=== PATIENT | male | born 1960 ===

== ENCOUNTER 2019-03-02 07:04 | Day surgery (SDC) | payer BC ==
[2019-03-02] MEDS ORDERED: Povidone Iodine Ophthalmic 5% Soln ONE (07:39)
[2019-03-02] MEDS ORDERED: Chondroitin/Hyaluronate Opth Syringe KIT (0.55 ml-0.5 ml) IO ONE (07:39)
[2019-03-02] MEDS ORDERED: Hyaluronidase Human, Recombi 150 U/ML VIAL ONE (07:39)
[2019-03-02] MEDS ORDERED: Tetracaine 0.5% Ophth (OR ONLY) ONE ×2 (07:39→07:41)
[2019-03-02] MEDS ORDERED: Tobramycin/Dexamethasone OPHT OINT ONE ×2 (07:39→07:41)
[2019-03-02] MEDS ORDERED: Tobramycin/Dexamethasone (Tobradex) Opth Sol (2.5 ml) ONE (07:39)
[2019-03-02] MEDS ORDERED: Carbachol 0.01% IO ONE (07:39)
[2019-03-02] MEDS ORDERED: Lidocaine/Epinephrine 1% 1:100000 10 ML IJ ONE (07:52)
[2019-03-02] MEDS ORDERED: Lidocaine 2% Jelly (Uro-Jet) ONE (07:52)
[2019-03-02 08:07] VITALS: BMI 35.5
[2019-03-02 11:15] VITALS: PULSE 70; TEMP 97.9; O2SAT 98
[2019-03-02 11:53] VITALS: BP 158/70; RESP 16
--- NOTE | 2019-03-03 07:14 | OP ---
PROCEDURE DATE: 03/02/2019 PREOPERATIVE DIAGNOSES: 1. Pterygium, left eye. 2. Corneal opacification, left eye. POSTOPERATIVE DIAGNOSES: 1. Pterygium, left eye. 2. Corneal opacification, left eye. OPERATIVE PROCEDURE: Excision of pterygium with conjunctival autograft and lamellar keratectomy, left eye. ANESTHESIA TYPE: Local standby. COMPLICATIONS: None. DESCRIPTION OF PROCEDURE: The patient was brought to the operating room and was prepped and draped in the usual sterile fashion. A lid speculum was placed into the eye and topical Tetracaine was used. Lidocaine 1% with epinephrine was injected subconjunctivally into the body of the pterygium. A Rhea scissor was used to create a small opening at the neck of the pterygium at the limbus, and then a tunnel was created beneath the pterygium. A #4-0 silk suture was placed through this tunnel and tied securely. An additional #4-0 silk suture was placed through the tunnel and in a sling fashion, was used to excise the head of the pterygium from the corneal surface. A Rhea scissor was then used to excise the scleral extension of the pterygium for approximately 3 to 4 mm. Tenon's membrane was removed beneath the dissected bed and light cautery was used for hemostasis. A #57 Manderson blade was then used to perform a lamellar keratectomy removing all of the opacified corneal tissue. A madhavi tio was used to setswana this surface. Lidocaine 1% was used subconjunctivally in the superior aspect of the eye, and a conjunctival autograft was harvested and rotated in an anatomical fashion over the recipient bed. The graft was noted to be of excellent size for the bed, and #8-0 Vicryl sutures were used in an interrupted fashion to suture the graft in place. At the limbus both above and below, the graft was tacked down to episclera. At the end of the case a collagen shield soaked in TobraDex was placed onto the cornea, and TobraDex ointment was placed into the eye. A patch and shield were placed over the eye, and the patient was taken from the operating room in excellent condition. Branden Lewis MD [facility] # [id number]
== END 2019-03-02 11:48 | disposition home or self-care (01) ==
LOC: C.SDS 07:04
PROVIDERS: ATTEND Ophthalmology
DX: H11.052 Peripheral pterygium, progressive, left eye (principal); H17.9 Unspecified corneal scar and opacity; I42.4 Endocardial fibroelastosis; E11.9 Type 2 diabetes mellitus without complications